=== PATIENT | female | born 1975 | race Caucasian/White ===

== ENCOUNTER 2016-06-08 20:12 | Emergency (ER) | payer SELFPAY ==
[2010-11-14 07:16] VITALS: BMI 30.8
== END 2016-06-08 21:50 | disposition home or self-care (01) ==
LOC: D.ER 20:12
DX: R51 Headache (principal); W01.0XXA Fall on same level from slipping, tripping and stumbling without subsequent striking against object, initial encounter; Y93.89 Activity, other specified; Y92.019 Unspecified place in single-family (private) house as the place of occurrence of the external cause; E24.9 Cushing's syndrome, unspecified; M51.36 Other intervertebral disc degeneration, lumbar region

== ENCOUNTER 2016-10-23 22:30 | Emergency (ER) | payer SELFPAY ==
[2010-11-14 07:16] VITALS: BMI 30.8
== END 2016-10-23 23:10 | disposition home or self-care (01) ==
LOC: D.ER 22:30
DX: H60.91 Unspecified otitis externa, right ear (principal); H92.01 Otalgia, right ear; H66.91 Otitis media, unspecified, right ear; M51.36 Other intervertebral disc degeneration, lumbar region; E24.9 Cushing's syndrome, unspecified; F17.200 Nicotine dependence, unspecified, uncomplicated

== ENCOUNTER 2016-11-17 10:20 | Emergency (ER) | payer MEDICAID ==
[2010-11-14 07:16] VITALS: BMI 30.8
[2016-11-17 11:26] LABS: BASOPHILS 0.4 % (0-2); EOSINOPHILS 6.4 % (0-7); HEMATOCRIT 45.7 % (36.0-48.0); HEMOGLOBIN 15.3 g/dL (12-16); IMMATURE GRANULOCYTES 0.3 % (0-5); LYMPHOCYTES 19.8 % (15-50); MCH 30.2 pg (26.0-34.0); MCHC 33.5 g/dL (31.0-37.0); MCV 90.3 fL (80.0-100.0); MEAN PLATELET VOLUME 10.4 fL (7.4-10.4); MONOCYTES 7.6 % (2-11); NEUTROPHILS 65.5 % (40-80); PLATELET COUNT 167 10x3/uL (130-400); RBC 5.06 10x6/uL (4.00-5.40); RDW 13.6 % (11.5-14.5); WBC 9.3 10x3/uL (4.8-10.8)
[2016-11-17 11:36] LABS: CALC OSMOLALITY 278 mosm/kg (275-300); CALCIUM 8.8 mg/dL (8.5-10.1); CARBON DIOXIDE 26.4 mmol/L (21.0-32.0); CHLORIDE - SERUM 105 mmol/L (98-107); CREATININE - SERUM 0.7 mg/dL (0.6-1.3); GLUCOSE 103 mg/dL (74-106); POTASSIUM - SERUM 4.2 mmol/L (3.5-5.1); SODIUM 140 mmol/L (136-145); UREA NITROGEN 13 mg/dL (7-18); eGFR NON AFRICAN AMERICAN > 90 mL/min (90-120)
[2016-11-17 11:40] LABS: APPEARANCE CLOUDY (CLEAR); BILIRUBIN NEGATIVE (NEGATIVE); COLOR YELLOW (YELLOW); GLUCOSE NEGATIVE (NEGATIVE); KETONE NEGATIVE (NEGATIVE); LEUKOCYTE ESTERASE NEGATIVE (NEGATIVE); NITRITE NEGATIVE (NEGATIVE); PROTEIN NEGATIVE (NEGATIVE); UROBILINOGEN NORMAL (NORMAL)
[2016-11-17 11:44] LABS: BACTERIA MODERATE /hpf (NONE SEEN); RED CELLS - URINE 0-5 /hpf (0-5); WHITE CELLS - URINE 0-5 /hpf (0-5); YEAST <1+ /hpf (NONE SEEN)
[2016-11-17 11:45] LABS: MUCUS >1+ /lpf (NONE SEEN)
== END 2016-11-17 14:24 | disposition home or self-care (01) ==
LOC: D.ER 10:20
PROVIDERS: Nurse Practitioner Acute Care
DX: G89.18 Other acute postprocedural pain (principal); K59.00 Constipation, unspecified; E24.9 Cushing's syndrome, unspecified; M51.36 Other intervertebral disc degeneration, lumbar region; R10.9 Unspecified abdominal pain; R10.13 Epigastric pain; F17.200 Nicotine dependence, unspecified, uncomplicated

== ENCOUNTER 2016-11-27 20:27 | Emergency (ER) | payer SELFPAY ==
[2010-11-14 07:16] VITALS: BMI 30.8
== END 2016-11-27 21:45 | disposition home or self-care (01) ==
LOC: D.ER 20:27
DX: S69.92XA Unspecified injury of left wrist, hand and finger(s), initial encounter (principal); X58.XXXA Exposure to other specified factors, initial encounter; M25.532 Pain in left wrist; F17.200 Nicotine dependence, unspecified, uncomplicated

== ENCOUNTER 2016-12-14 22:02 | Emergency (ER) | payer MEDICAID ==
[2010-11-14 07:16] VITALS: BMI 30.8
== END 2016-12-14 23:27 | disposition home or self-care (01) ==
LOC: D.ER 22:02
DX: M54.12 Radiculopathy, cervical region (principal); F17.200 Nicotine dependence, unspecified, uncomplicated; M79.602 Pain in left arm; M79.601 Pain in right arm

== ENCOUNTER 2017-04-05 16:28 | Emergency (ER) | payer MEDICAID ==
[2010-11-14 07:16] VITALS: BMI 30.8
== END 2017-04-05 17:45 | disposition home or self-care (01) ==
LOC: D.ER 16:28
DX: J01.90 Acute sinusitis, unspecified (principal); J06.9 Acute upper respiratory infection, unspecified; F17.200 Nicotine dependence, unspecified, uncomplicated

== ENCOUNTER 2017-07-06 02:09 | Emergency (ER) | payer MEDICAID ==
[2010-11-14 07:16] VITALS: BMI 30.8
== END 2017-07-06 02:28 | disposition home or self-care (01) ==
LOC: D.ER 02:09
DX: M25.562 Pain in left knee (principal); W10.9XXA Fall (on) (from) unspecified stairs and steps, initial encounter; Y93.89 Activity, other specified; Y92.019 Unspecified place in single-family (private) house as the place of occurrence of the external cause; F17.200 Nicotine dependence, unspecified, uncomplicated

== ENCOUNTER 2017-07-20 23:51 | Emergency (ER) | payer MEDICAID ==
[2010-11-14 07:16] VITALS: BMI 30.8
== END 2017-07-21 01:43 | disposition home or self-care (01) ==
LOC: D.ER 23:51
DX: S61.216A Laceration without foreign body of right little finger without damage to nail, initial encounter (principal); W26.0XXA Contact with knife, initial encounter; Y93.89 Activity, other specified; Y92.019 Unspecified place in single-family (private) house as the place of occurrence of the external cause

== ENCOUNTER 2017-09-24 00:11 | Emergency (ER) | payer MEDICAID ==
[~2017-09-24] VITALS: Ht 175.3 cm; Wt 104.5 kg
[2017-09-24 00:23] VITALS: Ht 175.3 cm; Wt 104.5 kg
[2017-09-24] MEDS ORDERED: ESTRACE 0.0142.5 GM (00:25)
[2017-09-24] MEDS ORDERED: ZOCOR5 MG (00:25)
[2017-09-24] MEDS ORDERED: VALIUM5 MG PO (02:04)
[2017-09-24 02:42] VITALS: BP 126/70
[2017-09-27 14:23] VITALS: Ht 175.3 cm; Wt 104.5 kg
== END 2017-09-24 02:44 | disposition home or self-care (01) ==
LOC: D.ER 00:11
DX: S39.012A Strain of muscle, fascia and tendon of lower back, initial encounter (principal); W01.0XXA Fall on same level from slipping, tripping and stumbling without subsequent striking against object, initial encounter; Y93.89 Activity, other specified; Y92.012 Bathroom of single-family (private) house as the place of occurrence of the external cause; F17.200 Nicotine dependence, unspecified, uncomplicated

== ENCOUNTER 2017-09-27 05:24 | Inpatient (IN) | payer MEDICAID ==
[~2017-09-27] VITALS: Ht 170.2 cm; Wt 113.6 kg
[~2017-09-27 05:24] MED LIST: ESTRACE 0.0142.5 GM; VALIUM5 MG PO; ZOCOR5 MG
[2017-09-27 06:37] LABS: BASOPHILS 0.2 % (0-2); EOSINOPHILS 1.4 % (0-7); HEMATOCRIT 50.8 % (36.0-48.0); HEMOGLOBIN 16.9 g/dL (12-16); IMMATURE GRANULOCYTES 0.3 % (0-5); LYMPHOCYTES 7.7 % (15-50); MCHC 33.3 g/dL (31.0-37.0); MCV 93.2 fL (80.0-100.0); MEAN PLATELET VOLUME 10.3 fL (7.4-10.4); NEUTROPHILS 83.4 % (40-80); PLATELET COUNT 153 10x3/uL (130-400); RBC 5.45 10x6/uL (4.00-5.40); RDW 13.9 % (11.5-14.5); WBC 16.7 10x3/uL (4.8-10.8)
[2017-09-27 06:59] LABS: ALBUMIN 3.8 g/dL (3.4-5.0); ALKALINE PHOSPHATASE 104 U/L (46-116); ALT (SGPT) 42 U/L (10-68); CALC OSMOLALITY 281 mosm/kg (275-300); CARBON DIOXIDE 22.5 mmol/L (21.0-32.0); CHLORIDE - SERUM 106 mmol/L (98-107); CREATININE - SERUM 0.7 mg/dL (0.6-1.3); GLUCOSE 120 mg/dL (74-106); LIPASE 1377 U/L (73-393); POTASSIUM - SERUM 4.1 mmol/L (3.5-5.1); PROTEIN - SERUM 7.6 g/dL (6.4-8.2); SODIUM 139 mmol/L (136-145); TROPONIN-I < 0.017 ng/mL (0.000-0.060); UREA NITROGEN 21 mg/dL (7-18); eGFR NON AFRICAN AMERICAN > 90 mL/min (90-120)
[2017-09-27 07:10] LABS: CALCIUM 9.1 mg/dL (8.5-10.1)
[2017-09-27 07:20] VITALS: BP 142/86
[2017-09-27 08:09] LABS: APPEARANCE CLEAR (CLEAR); BILIRUBIN NEGATIVE (NEGATIVE); COLOR YELLOW (YELLOW); GLUCOSE NEGATIVE (NEGATIVE); KETONE NEGATIVE (NEGATIVE); NITRITE NEGATIVE (NEGATIVE); PROTEIN NEGATIVE (NEGATIVE); UROBILINOGEN NORMAL (NORMAL)
[2017-09-27 09:09] VITALS: BP 139/86
[2017-09-27 09:30] LABS: UDS - AMPHET NEGATIVE QUAL (NEGATIVE); UDS - BARB NEGATIVE QUAL (NEGATIVE); UDS - BENZO POSITIVE QUAL (NEGATIVE); UDS - COCAINE NEGATIVE QUAL (NEGATIVE); UDS - OPIATE NEGATIVE QUAL (NEGATIVE); UDS - PCP NEGATIVE QUAL (NEGATIVE); UDS - THC NEGATIVE QUAL (NEGATIVE)
[2017-09-27 12:31] VITALS: BP 126/93
[2017-09-27 14:23] VITALS: Ht 170.2 cm; Wt 113.6 kg
[2017-09-27 20:09] VITALS: BP 98/41
[2017-09-28] VITALS: BP 121/59
[2017-09-28 04:00] VITALS: BP 116/44
[2017-09-28 04:58] LABS: BASOPHILS 0.6 % (0-2); EOSINOPHILS 6.3 % (0-7); HEMATOCRIT 40.8 % (36.0-48.0); IMMATURE GRANULOCYTES 0.2 % (0-5); LYMPHOCYTES 34.8 % (15-50); MCH 29.6 pg (26.0-34.0); MCHC 31.9 g/dL (31.0-37.0); MCV 92.9 fL (80.0-100.0); MEAN PLATELET VOLUME 10.7 fL (7.4-10.4); MONOCYTES 8.1 % (2-11); PLATELET COUNT 139 10x3/uL (130-400); RBC 4.39 10x6/uL (4.00-5.40); RDW 13.8 % (11.5-14.5); WBC 6.4 10x3/uL (4.8-10.8)
[2017-09-28 05:08] LABS: ALBUMIN 2.9 g/dL (3.4-5.0); ANION GAP 11.5 mmol/L (8-16); BILIRUBIN - TOTAL 0.79 mg/dL (0.2-1.3); CALCIUM 8.8 mg/dL (8.5-10.1); CREATININE - SERUM 0.9 mg/dL (0.6-1.3); MAGNESIUM - SERUM 1.9 mg/dL (1.8-2.4); PHOSPHOROUS 3.8 mg/dL (2.5-4.9); POTASSIUM - SERUM 3.5 mmol/L (3.5-5.1); PROTEIN - SERUM 6.1 g/dL (6.4-8.2)
[2017-09-28 08:50] VITALS: BP 111/66
[2017-09-28 11:40] VITALS: BP 108/76
[2017-09-28 20:00] VITALS: BP 129/75
[2017-09-29 00:18] VITALS: BP 120/60
[2017-09-29 04:10] VITALS: BP 137/77
[2017-09-29 05:54] LABS: BASOPHILS 0.5 % (0-2); EOSINOPHILS 6.2 % (0-7); HEMATOCRIT 43.2 % (36.0-48.0); MCH 30.2 pg (26.0-34.0); MCHC 32.4 g/dL (31.0-37.0); MCV 93.1 fL (80.0-100.0); MEAN PLATELET VOLUME 10.9 fL (7.4-10.4); MONOCYTES 6.8 % (2-11); NEUTROPHILS 57.5 % (40-80); PLATELET COUNT 131 10x3/uL (130-400); RBC 4.64 10x6/uL (4.00-5.40); RDW 13.8 % (11.5-14.5); WBC 6.5 10x3/uL (4.8-10.8)
[2017-09-29 06:06] LABS: ALBUMIN 2.9 g/dL (3.4-5.0); ANION GAP 14.8 mmol/L (8-16); BILIRUBIN - TOTAL 0.7 mg/dL (0.2-1.3); CALCIUM 8.6 mg/dL (8.5-10.1); CARBON DIOXIDE 27.7 mmol/L (21.0-32.0); CREATININE - SERUM 0.9 mg/dL (0.6-1.3); MAGNESIUM - SERUM 1.8 mg/dL (1.8-2.4); PHOSPHOROUS 3.9 mg/dL (2.5-4.9); POTASSIUM - SERUM 3.5 mmol/L (3.5-5.1)
[2017-09-29] MEDS ORDERED: FLORAJEN3 CAPS460 MG PO (07:13)
[2017-09-29] MEDS ORDERED: LEVAQUIN750 MG PO (07:14)
[2017-09-29] MEDS ORDERED: PROTONIX40 MG PO (07:14)
[2017-09-29 08:19] VITALS: BP 127/76
== END 2017-09-29 11:30 | disposition home or self-care (01) | DRG 438 ==
LOC: D.ER 05:24 → D.EDHOLD 09:41 → D.MS 09:41
PROVIDERS: Family Medicine
DX: K85.90 Acute pancreatitis without necrosis or infection, unspecified (principal); J18.9 Pneumonia, unspecified organism; E78.5 Hyperlipidemia, unspecified

== ENCOUNTER 2018-09-30 00:06 | Emergency (ER) | payer MEDICAID ==
[~2018-09-30] VITALS: Ht 170.2 cm; Wt 104.5 kg
[~2018-09-30 00:06] MED LIST changes: +FLORAJEN3 CAPS460 MG PO; +LEVAQUIN750 MG PO; +PROTONIX40 MG PO
[2018-09-30 00:18] VITALS: Ht 170.2 cm; Wt 104.5 kg
[2018-09-30 00:45] LABS: BASOPHILS 0.4 % (0-2); EOSINOPHILS 2.5 % (0-7); HEMATOCRIT 43.4 % (36.0-48.0); HEMOGLOBIN 14.5 g/dL (12-16); IMMATURE GRANULOCYTES 0.3 % (0-5); LYMPHOCYTES 26.7 % (15-50); MCH 30.2 pg (26.0-34.0); MCHC 33.4 g/dL (31.0-37.0); MCV 90.4 fL (80.0-100.0); MEAN PLATELET VOLUME 10.2 fL (7.4-10.4); MONOCYTES 6.8 % (2-11); NEUTROPHILS 63.3 % (40-80); PLATELET COUNT 150 10x3/uL (130-400); RDW 13.6 % (11.5-14.5)
[2018-09-30 01:00] LABS: APPEARANCE CLOUDY (CLEAR); BILIRUBIN NEGATIVE (NEGATIVE); COLOR YELLOW (YELLOW); GLUCOSE NEGATIVE (NEGATIVE); KETONE NEGATIVE (NEGATIVE); NITRITE NEGATIVE (NEGATIVE); PROTEIN 1+ mg/dL (NEGATIVE); SPECIFIC GRAVITY 1.025 (1.005-1.020); UROBILINOGEN NORMAL (NORMAL)
[2018-09-30 01:02] LABS: BACTERIA MANY /hpf (NONE SEEN); RED CELLS - URINE 0-5 /hpf (0-5)
[2018-09-30 01:03] LABS: HCG SERUM NEGATIVE (NEGATIVE)
[2018-09-30 01:06] LABS: ALBUMIN 3.6 g/dL (3.4-5.0); ALKALINE PHOSPHATASE 104 U/L (46-116); ALT (SGPT) 44 U/L (10-68); BILIRUBIN - TOTAL 0.46 mg/dL (0.2-1.3); CALC OSMOLALITY 280 mosm/kg (275-300); CALCIUM 8.7 mg/dL (8.5-10.1); CARBON DIOXIDE 26.4 mmol/L (21.0-32.0); CHLORIDE - SERUM 102 mmol/L (98-107); CREATININE - SERUM 0.9 mg/dL (0.6-1.3); GLUCOSE 106 mg/dL (74-106); POTASSIUM - SERUM 3.8 mmol/L (3.5-5.1); PROTEIN - SERUM 6.9 g/dL (6.4-8.2); SODIUM 140 mmol/L (136-145); UREA NITROGEN 17 mg/dL (7-18); eGFR NON AFRICAN AMERICAN 73 mL/min (90-120)
[2018-09-30 01:08] LABS: AMYLASE - SERUM 32 U/L (25-115); LIPASE 106 U/L (73-393)
[2018-09-30 01:09] LABS: TROPONIN-I < 0.017 ng/mL (0.000-0.060)
[2018-09-30] MEDS ORDERED: PROTONIX40 MG PO (03:35)
[2018-09-30] MEDS ORDERED: ZOFRAN4 MG PO (03:35)
[2018-09-30] MEDS ORDERED: MACROBID100 MG PO (03:35)
[2018-09-30 03:46] VITALS: BP 133/78
== END 2018-09-30 03:46 | disposition home or self-care (01) ==
LOC: D.ER 00:06
PROVIDERS: Family Medicine
DX: N39.0 Urinary tract infection, site not specified (principal); R10.9 Unspecified abdominal pain; K29.70 Gastritis, unspecified, without bleeding

== ENCOUNTER 2018-10-02 00:43 | Emergency (ER) | payer MEDICAID ==
[~2018-10-02] VITALS: Ht 170.2 cm; Wt 102.3 kg
[~2018-10-02 00:43] MED LIST changes: +MACROBID100 MG PO; +ZOFRAN4 MG PO
[2018-10-02 00:56] VITALS: Ht 170.2 cm; Wt 102.3 kg
[2018-10-02] MEDS ORDERED: ZOFRAN ODT4 MG/UDTAB PO (02:52)
[2018-10-02] MEDS ORDERED: KLONOPIN1 MG PO (02:52)
[2018-10-02] MEDS ORDERED: CIPRO500 MG PO (02:52)
[2018-10-02 04:40] VITALS: BP 112/65
== END 2018-10-02 03:59 | disposition home or self-care (01) ==
LOC: D.ER 00:43
DX: N39.0 Urinary tract infection, site not specified (principal); F43.20 Adjustment disorder, unspecified; R11.2 Nausea with vomiting, unspecified

== ENCOUNTER 2018-11-05 23:12 | Emergency (ER) | payer MEDICAID ==
[~2018-11-05] VITALS: Ht 170.2 cm; Wt 90.7 kg
[~2018-11-05 23:12] MED LIST changes: +CIPRO500 MG PO; +KLONOPIN1 MG PO; +ZOFRAN ODT4 MG/UDTAB PO
[2018-11-05 23:14] VITALS: Ht 170.2 cm; Wt 90.7 kg
[2018-11-06] MEDS ORDERED: ZOFRAN4 MG PO (01:45)
[2018-11-06] MEDS ORDERED: TORADOL10 MG PO (01:45)
[2018-11-06 03:39] VITALS: BP 116/56
== END 2018-11-06 02:40 | disposition home or self-care (01) ==
LOC: D.ER 23:12
DX: S00.03XA Contusion of scalp, initial encounter (principal); W18.30XA Fall on same level, unspecified, initial encounter; Y93.89 Activity, other specified; Y92.89 Other specified places as the place of occurrence of the external cause; S40.012A Contusion of left shoulder, initial encounter

== ENCOUNTER 2018-12-19 22:18 | Emergency (ER) | payer MEDICAID ==
[~2018-12-19] VITALS: Ht 170.2 cm; Wt 110.7 kg
[~2018-12-19 22:18] MED LIST changes: +TORADOL10 MG PO
[2018-12-19 22:35] VITALS: Ht 170.2 cm; Wt 110.7 kg
[2018-12-20] MEDS ORDERED: TORADOL10 MG PO (00:07)
[2018-12-20] MEDS ORDERED: DOXYCYCLINE HY100 M2 PO (00:07)
[2018-12-20 00:51] VITALS: BP 114/70
== END 2018-12-20 00:51 | disposition home or self-care (01) ==
LOC: D.ER 22:18
DX: J01.90 Acute sinusitis, unspecified (principal); S30.0XXA Contusion of lower back and pelvis, initial encounter; W18.30XA Fall on same level, unspecified, initial encounter; Y93.89 Activity, other specified; Y92.89 Other specified places as the place of occurrence of the external cause

== ENCOUNTER 2019-01-24 21:33 | Emergency (ER) | payer MEDICAID ==
[~2019-01-24] VITALS: Ht 170.2 cm; Wt 110.9 kg
[~2019-01-24 21:33] MED LIST changes: +DOXYCYCLINE HY100 M2 PO
[2019-01-24 21:39] VITALS: BP 147/88; Ht 170.2 cm; Wt 110.9 kg
[2019-01-24] MEDS ORDERED: LEXAPRO10 MG PO (22:39)
[2019-01-24] MEDS ORDERED: KLONOPIN1 MG PO (22:39)
== END 2019-01-24 22:56 | disposition home or self-care (01) ==
LOC: D.ER 21:33
DX: F41.9 Anxiety disorder, unspecified (principal); F32.9 Major depressive disorder, single episode, unspecified

== ENCOUNTER 2019-04-09 17:44 | Emergency (ER) | payer MEDICAID ==
[2019-01-24 21:39] VITALS: Ht 170.2 cm; Wt 109.1 kg
[~2019-04-09] VITALS: Ht 170.2 cm; Wt 109.1 kg
[~2019-04-09 17:44] MED LIST changes: +LEXAPRO10 MG PO
[2019-04-09] MEDS ORDERED: PREDNISONE20 MG PO (19:29)
[2019-04-09] MEDS ORDERED: ALBUTEROL SULF8.5 GM INH (19:29)
[2019-04-09] MEDS ORDERED: MUCINEX DM ER1 EAC1 PO (19:29)
[2019-04-09 20:32] VITALS: BP 125/73
== END 2019-04-09 20:32 | disposition home or self-care (01) ==
LOC: D.ER 17:44
DX: J01.90 Acute sinusitis, unspecified (principal); R05 Cough

== ENCOUNTER → 2020-01-27 12:51 | Outpatient (CLI) | payer MEDICARE ==
[2019-04-09 17:47] VITALS: BMI 37.7
[~2020-01-27 12:51] MED LIST changes: +ALBUTEROL SULF8.5 GM INH; +MUCINEX DM ER1 EAC1 PO; +PREDNISONE20 MG PO
== END | disposition home or self-care (01) ==
LOC: D.MRI 01-06 09:00
DX: M47.817 Spondylosis without myelopathy or radiculopathy, lumbosacral region (principal); M47.897 Other spondylosis, lumbosacral region; M46.87 Other specified inflammatory spondylopathies, lumbosacral region; G89.4 Chronic pain syndrome; Z79.891 Long term (current) use of opiate analgesic; Z79.899 Other long term (current) drug therapy

== ENCOUNTER 2020-09-03 15:30 | Outpatient (CLI) | payer MEDICARE ==
[2019-04-09 17:47] VITALS: BMI 37.7
== END 2020-09-03 23:59 | disposition home or self-care (01) ==
LOC: D.MAMMO 15:30
PROVIDERS: ATTEND Nurse Practitioner
DX: Z12.31 Encounter for screening mammogram for malignant neoplasm of breast (principal)